=== PATIENT | female | born 1990 | race Caucasian/White ===

== ENCOUNTER 2019-09-16 11:27 | Emergency (ER) | payer OTHER ==
[2019-09-16 11:51] VITALS: BP 123/74; Ht 157.5 cm
== END 2019-09-16 13:03 | disposition home or self-care (01) ==
LOC: ED 11:27
DX: T63.441A Toxic effect of venom of bees, accidental (unintentional), initial encounter (principal); Y92.89 Other specified places as the place of occurrence of the external cause
CPT/HCPCS: J7512